=== PATIENT | male | born 1995 | race Caucasian/White ===

== ENCOUNTER 2018-07-31 07:34 | Emergency (ER) | payer BC ==
[2018-07-31 08:05] VITALS: BP 139/76
--- NOTE | 2018-07-31 08:13 | UC ---
General HPI - HPI Summary HPI Summary: RN notes- Woke up 2 days ago with tender left forearm/elbow. States "it feels like I tore a muscle or something." Has been working out. Able to open and close hand. Denies numbness or tingling. Occasional sharp, shooting pain. 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 Pleasant 22 yo gentleman c/o progressive L forearm and elbow pain. Does not recall precise injury, but thinks he may have pulled a muscle or tendon. Pain is worse with straightening forearm. PT is R handed. Does work out a lot. No recent illness, no f/c. No sob / cp. No GI issues. No distal weakness. Nature of pain described above. No rash. - History of Current Complaint Chief Complaint: UCUpperExtremity Stated Complaint: LT ARM PAIN Time Seen by Provider: 07/31/18 07:59 Hx Obtained From: Patient Pain Intensity: 5 - Allergy/Home Medications Allergies/Adverse Reactions: Allergies Allergy/AdvReac Type Severity Reaction Status Date / Time No Known Allergies Allergy Verified 07/31/18 08:02 Home Medications: Home Medications Acetaminophen [Acetaminophen Extra Strength] 1,000 mg PO ONCE PRN 07/31/18 [ History Confirmed 07/31/18] PMH/Surg Hx/FS Hx/Imm Hx Previously Healthy: Yes - Surgical History Surgical History: None - Family History Known Family History: Positive: Non-Contributory - Social History Alcohol Use: Occasionally Substance Use Type: None Smoking Status (MU): Never Smoked Tobacco - Immunization History Vaccination Up to Date: Yes Review of Systems All Other Systems Reviewed And Are Negative: Yes Constitutional: Positive: Negative Skin: Positive: Negative Eyes: Positive: Negative ENT: Positive: Negative Respiratory: Positive: Negative Cardiovascular: Positive: Negative Gastrointestinal: Positive: Negative Genitourinary: Positive: Negative Motor: Positive: Other - see hpi Neurovascular: Positive: Other - see hpi Musculoskeletal: Positive: Other: - see hpi Neurological: Positive: Other - see hpi Psychological: Positive: Negative Is Patient Immunocompromised?: No Physical Exam Triage Information Reviewed: Yes Appearance: Well-Appearing, Well-Nourished Vital Signs: Initial Vital Signs Temp 97.8 F 07/31/18 07:59 Pulse 64 07/31/18 07:59 Resp 14 07/31/18 07:59 BP 139/76 07/31/18 07:59 Pulse Ox 100 07/31/18 07:59 Vital Signs Reviewed: Yes Eye Exam: Normal - grossly normal ENT Exam: Normal - nad Neck exam: Normal Neck: Positive: Supple, Nontender Respiratory Exam: Normal - RR normal, no tachypnea, no dyspnea Cardiovascular Exam: Normal - HR normal, nondiaphoretic. Distal R/U pulses present Abdominal Exam: Normal - benign Musculoskeletal Exam: Other - Tender medial elbow ant and forearm. Some prox arm tenderness. Strength hand / wrist good. Unable to straighten arm d/t pain. Distal sens present LT. Ax n.sens intact. Neurological Exam: Normal Psychological Exam: Normal Skin Exam: Normal - no visible or reported rash Course/Dx - Course Course Of Treatment: S/sx c/w tendonitis (although c/n r/o primary strain, but no known injury). Consider brachioradialis m region. Reviewed coa /tx plan. Questions as posed answered to the best of my ability. - Diagnoses Provider Diagnosis: Tendonitis Discharge - Sign-Out/Discharge Documenting (check all that apply): Patient Departure All imaging exams completed and their final reports reviewed: Yes - Discharge Plan Condition: Stable Disposition: HOME Prescriptions: Ibuprofen TAB* [Motrin TAB* 600 MG] 600 mg PO Q8H PRN #30 tab PRN Reason: Pain Patient Education Materials: Tendinitis (ED) Forms: *Work Release Referrals: Georgi Barnes [Medical Doctor] - No Primary Care Phys,NOPCP [Primary Care Provider] - Additional Instructions: Sling as needed during the day for comfort. Minimize excercise until you are back to normal. Follow up with sports medicine doctor, next available. Follow up with your new doctor as scheduled, routine. Seek medical attention for worse or new problems in the meantime. - Billing Disposition and Condition Condition: STABLE Disposition: Home
== END 2018-07-31 09:22 | disposition home or self-care (01) ==
LOC: UCCORT 07:34
DX: M77.9 Enthesopathy, unspecified (principal)
CPT/HCPCS: 99203; G0463